=== PATIENT | male | born 1995 | race Caucasian/White ===

== ENCOUNTER 2019-11-25 05:27 | Emergency (ER) | payer OTHER ==
[~2019-11-25] VITALS: Ht 175.3 cm; Wt 63.5 kg
[2019-11-25 05:45] VITALS: BP 110/62
== END 2019-11-25 06:08 | disposition left against medical advice (07) ==
LOC: ER 05:27
DX: R10.11 Right upper quadrant pain (principal); R11.2 Nausea with vomiting, unspecified; R19.7 Diarrhea, unspecified; Z53.21 Procedure and treatment not carried out due to patient leaving prior to being seen by health care provider
CPT/HCPCS: 74176

== ENCOUNTER 2024-07-16 12:39 | Emergency (ER) | payer OTHER ==
[~2024-07-16] VITALS: Ht 177.8 cm; Wt 86.3 kg
[2024-07-16 12:55] VITALS: PULSE 100; RESP 16; O2SAT 98
--- NOTE | 2024-07-16 16:56 | ED.PDOC ---
History of Present Illness HPI Comments This is a who is also here with his for exposure to a goat that . Jose was sick and at the house. patient with symptoms. They do not know what was wrong with him. Chief Complaint: Medical Clearance Time Seen by MD: 16:52 Primary Care Provider: ? Reviewed Notes: Nurses Notes, Medications, Allergies Allergies: Coded Allergies: NO KNOWN ALLERGIES (Unverified , 11/25/19) Information Source: Patient Mode of Arrival: Ambulatory Past Medical History Surgical History: Appendectomy Social History Smoker: Non-Smoker Alcohol: Denies ETOH Use Drugs: Denies Drug Use Lives In: Home All Other Systems: Reviewed and Negative Physical Exam General Appearance: No Apparent Distress, Normal HEENT: Normal ENT Inspection, PERRL/EOMI, Pharynx Normal, TMs Normal Neck: Non-Tender, Normal, Normal Inspection Respiratory: Lungs Clear, No Respiratory Distress Cardiovascular: Regular Rate/Rhythm Breast Exam: Deferred Gastrointestinal: Non Tender, Normal Bowel Sounds, RUQ Genitalia: Deferred Pelvic: Deferred Rectal: Deferred Extremities: Normal inspection, Normal range of motion Neurologic: Alert, Normal Affect, Normal Mood Cerebellar Function: NOT DONE Reflexes: NOT DONE Skin: Dry, None, Warm Lymphatic: No Adenopathy Was a procedure done? Was a procedure done?: No Differential Dx Considerations may include: Viral syndrome X-Ray, Labs, Meds, VS Vital Signs Date Time Temp Pulse Resp B/P (MAP) Pulse Ox O2 Delivery O2 Flow Rate FiO2 07/16/24 12:55 100 16 98 Room Air* 0 21 07/16/24 12:45 98.2 100 16 124/84 (97) 98 Time of 1ST Reevaluation: 16:54 Reevaluation 1ST: Improved Patient Education/Counseling: Diagnosis, Treatment, Prognosis, Need For Follow Up Family Education/Counseling: Diagnosis, Treatment, Prognosis, Need For Follow Up Departure 1 Departure Time of Disposition: 16:54 Impression: Primary Impression: Exposure to biological agent Disposition: 01 HOME / SELF CARE / HOMELESS Condition: Good Additional Instructions: Call the Department of Public Health Call a farm animal Vet Look for symptoms of Fever, chills, nausea or vomiting Discharged With: Self Critical Care Note Critical Care Time?: No Stability Stability form required: SUSAN Garcia Jul 16, 2024 16:56
[2024-07-16 17:02] VITALS: BP 103/68; PULSE 93; RESP 18; TEMP 98; O2SAT 97
== END 2024-07-16 17:18 | disposition home or self-care (01) ==
LOC: ER 12:39
DX: Z00.00 Encounter for general adult medical examination without abnormal findings (principal); Z90.49 Acquired absence of other specified parts of digestive tract